=== PATIENT | male | born 1995 | race Caucasian/White ===

== ENCOUNTER 2017-11-08 16:55 | Emergency (ER) | payer OTHER ==
[~2017-11-08] VITALS: Ht 175.3 cm; Wt 68.0 kg
[2017-11-08 16:58] VITALS: BP 123/83
[2017-11-08] MEDS ORDERED: METHOCARBAMOL 750 MG TABLET ONE (17:52)
[2017-11-08] MEDS ORDERED: IBUPROFEN 200 MG TABLET ONE (17:52)
[2017-11-08] MEDS ORDERED: METHOCARBAMOL 750 MG TABLET PO ONE (18:00)
[2017-11-08] MEDS ORDERED: IBUPROFEN 200 MG TABLET PO ONE (18:00)
== END 2017-11-08 18:42 ==
LOC: ED 17:44
DX: M62.838 Other muscle spasm (principal)
CPT/HCPCS: 99284